=== PATIENT | female | born 1940 | race Caucasian/White ===

== ENCOUNTER → 2017-09-15 | Outpatient (CLI) | payer BC ==
[2014-05-01 11:00] VITALS: BP 140/70
[~2017-09-15] MED LIST: DIAZ5TAB4 PO; HYDR12.53 PO; NAPR500T4 PO; OMEP40CA5 PO; OXYB15TA PO; Oxybutynin Chloride PO; PROP20TA PO; Propranolol Hcl PO; ROPI1TAB PO; ROPI1TAB2 PO; SIMV40TA3 PO; SUCR1TAB35 PO; TRAM-48 PO; TRAM50TA PO; VENL75TA PO; Venlafaxine Hcl PO
--- NOTE | 2017-09-15 14:26 | RAD ---
DATE: 09/15/2017 EXAM: DIGITAL SCREEN BILAT W/CAD HISTORY: Routine screening COMPARISON: 08/27/2016 This study was interpreted with the benefit of Computerized Aided Detection (CAD). FINDINGS: Breast Density: HETERO The breast parenchyma Is heterogeneouslyy dense, which could reduce sensitivity of mammography. Breast parenchyma level C. There are no dominant suspicious masses, suspicious microcalcifications or evidence of architectural distortion. Nodules identified in the left breast appear similar to prior exam. IMPRESSION: Benign findings BI-RADS CATEGORY: 2 BENIGN FINDING RECOMMENDED FOLLOW-UP: 12M 12 MONTH FOLLOW-UP PQRS compliance statement: Patient information was entered into a reminder system with a target due date 09/15/2018 for the next mammogram. Mammography is a sensitive method for finding small breast cancers, but it does not detect them all and is not a substitute for careful clinical examination. A negative mammogram does not negate a clinically suspicious finding and should not result in delay in biopsying a clinically suspicious abnormality. "Our facility is accredited by the [employer] Mammography Program."
== END | disposition home or self-care (01) ==
LOC: MAMMO 13:33
PROVIDERS: ATTEND Family Medicine
DX: Z12.31 Encounter for screening mammogram for malignant neoplasm of breast (principal); Z87.891 Personal history of nicotine dependence
CPT/HCPCS: G0202; 77067

== ENCOUNTER → 2018-12-29 | Outpatient (CLI) | payer BC ==
[2014-05-01 11:00] VITALS: BP 140/70
[~2018-12-29] MED LIST changes: -HYDR12.53 PO; +HYDR12.575 PO; +NAPR-514 PO; -NAPR500T4 PO
--- NOTE | 2018-12-29 16:35 | RAD ---
Exam performed: X-ray lumbosacral spine HISTORY: Low back pain for one week, no recent injury. DATE OF SERVICE: 12/29/2018. COMPARISON: None available FINDINGS: AP, lateral, both oblique and cone view of the lumbosacral junction is obtained. There is grade 1 anterolisthesis of L4 over L5. The vertebral body heights are maintained. There is narrowing of L3/4, T12/L1 and L1/L2 intervertebral disc spaces. No compression fracture. Diffuse atheromatous calcification of the aorta is seen. Oblique views demonstrate multilevel bilateral apophyseal joint hypertrophic changes encroaching on the neural foramen bilaterally. IMPRESSION: Spondylotic changes and multilevel disc degenerative facet hypertrophic changes are noted. No acute abnormality seen. Electronically signed by: Maria Victoria Machcua MD (12/29/2018 4:30 PM) [place] [id number]
== END | disposition home or self-care (01) ==
LOC: RAD 15:17
PROVIDERS: ATTEND Family Medicine
DX: M47.816 Spondylosis without myelopathy or radiculopathy, lumbar region (principal); M48.061 Spinal stenosis, lumbar region without neurogenic claudication; M89.38 Hypertrophy of bone, other site; I70.0 Atherosclerosis of aorta; Z88.8 Allergy status to other drugs, medicaments and biological substances
CPT/HCPCS: 72110

== ENCOUNTER 2019-02-27 13:01 | Emergency (ER) | payer BC ==
[~2019-02-27] VITALS: Ht 162.6 cm; Wt 95.3 kg
[2019-02-27 13:23] VITALS: BP 140/69
[2019-02-27] MEDS ORDERED: DEXAMETHASONE 4 MG TABLET PO ONE (13:30)
--- NOTE | 2019-02-27 13:49 | RAD ---
Chest radiograph 02/27/2019 1:29 PM INDICATION: Cough for 10 days COMPARISON: October 05, 2018 TECHNIQUE: Frontal and lateral views of the chest are provided. FINDINGS: The cardiomediastinal silhouette is within normal limits. There are no pleural effusions. There is no pulmonary vascular congestion. There is no pneumothorax. The lungs are clear. Mild centrilobular pulmonary emphysema is present. Degenerative changes of the thoracic spine are noted. IMPRESSION: COPD changes without acute cardiopulmonary process. Electronically signed by: Hanna Kyle MD (02/27/2019 1:46 PM) [id number]
[2019-02-27] MEDS ORDERED: PRED20TA PO (14:05)
[2019-02-27] MEDS ORDERED: ALBU2.5V8 INH (14:05)
[2019-02-27] MEDS ORDERED: BENZ100C PO (14:05)
--- NOTE | 2019-02-27 14:05 | PHYS DOC ---
Past Medical History Past Medical History: GERD, High Cholesterol, Hypertension Past Surgical History: Hip Replacement, Knee Replacement Additional Past Surgical Histo: bladder sling (1 weeks ago) Alcohol Use: None Drug Use: None Adult General Chief Complaint Chief Complaint: COUGH HPI HPI Patient is a 78 year old [f__sex] who presents with [] Review of Systems Review of Systems Constitutional: Denies fever or chills [] Eyes: Denies change in visual acuity, redness, or eye pain [] HENT: Denies nasal congestion or sore throat [] Respiratory: Denies cough or shortness of breath [] Cardiovascular: No additional information not addressed in HPI [] GI: Denies abdominal pain, nausea, vomiting, bloody stools or diarrhea [] : Denies dysuria or hematuria [] Musculoskeletal: Denies back pain or joint pain [] Integument: Denies rash or skin lesions [] Neurologic: Denies headache, focal weakness or sensory changes [] Endocrine: Denies polyuria or polydipsia [] All other systems were reviewed and found to be within normal limits, except as documented in this note. Current Medications Current Medications Current Medications Medications (Trade) Dose Ordered Sig/Chris Start Time Stop Time Status Last Admin Dose Admin Dexamethasone (Decadron) 10 mg 1X ONCE 02/27/19 13:30 02/27/19 13:32 DC 02/27/19 13:30 10 MG Allergies Allergies Allergies Coded Allergies Type Severity Reaction Last Updated Verified diazepam Allergy Intermediate Anxiety 04/28/14 No adhesive Allergy Unknown 04/28/14 No Physical Exam Physical Exam Constitutional: Well developed, well nourished, no acute distress, non-toxic appearance. [] HENT: Normocephalic, atraumatic, bilateral external ears normal, oropharynx moist, no oral exudates, nose normal. [] Eyes: PERRLA, EOMI, conjunctiva normal, no discharge. [] Neck: Normal range of motion, no tenderness, supple, no stridor. [] Cardiovascular:Heart rate regular rhythm, no murmur [] Lungs & Thorax: Bilateral breath sounds clear to auscultation [] Abdomen: Bowel sounds normal, soft, no tenderness, no masses, no pulsatile masses. [] Skin: Warm, dry, no erythema, no rash. [] Back: No tenderness, no CVA tenderness. [] Extremities: No tenderness, no cyanosis, no clubbing, ROM intact, no edema. [] Neurologic: Alert and oriented X 3, normal motor function, normal sensory function, no focal deficits noted. [] Psychologic: Affect normal, judgement normal, mood normal. [] Current Patient Data Vital Signs Vital Signs Date Time Temp Pulse Resp B/P (MAP) Pulse Ox O2 Delivery O2 Flow Rate FiO2 02/27/19 13:23 98.7 77 16 140/69 (92) 96 Room Air 98.7 EKG EKG [] Radiology/Procedures Radiology/Procedures [] Course & Med Decision Making Course & Med Decision Making Pertinent Labs and Imaging studies reviewed. (See chart for details) [] Dragon Disclaimer Dragon Disclaimer This electronic medical record was generated, in whole or in part, using a voice recognition dictation system. Departure Departure Impression: Primary Impression: Bronchitis Disposition: 01 HOME, SELF-CARE Condition: STABLE Referrals: Marlin AGUSTIN MD (PCP) Patient Instructions: Acute Bronchitis, [id number] Additional Instructions: Continue recently prescribed antibiotics as directed Scripts Benzonatate (TESSALON PERLE) 100 Mg Capsule 1 CAP PO TID PRN for COUGH, #21 CAP Prov: JENNYFER SOTO DO 02/27/19 Albuterol Sulfate (PROAIR HFA INHALER) 8.5 Gm Hfa.aer.ad 1 PUFF INH PRN Q6HRS PRN for SHORTNESS OF BREATH, #1 INHALER 0 Refills Prov: JENNYFER SOTO DO 02/27/19 Prednisone (PREDNISONE) 20 Mg Tablet 2 TAB PO DAILY, #8 TAB Start this prescription tomorrow, Tue02/28/19 Prov: JENNYFER SOTO DO 02/27/19 JENNYFER SOTO DO Feb 27, 2019 14:05
== END 2019-02-27 14:31 | disposition home or self-care (01) ==
LOC: ER 13:01
DX: J40 Bronchitis, not specified as acute or chronic (principal); K21.9 Gastro-esophageal reflux disease without esophagitis; E78.00 Pure hypercholesterolemia, unspecified; I10 Essential (primary) hypertension; Z96.649 Presence of unspecified artificial hip joint; Z96.659 Presence of unspecified artificial knee joint; Z88.8 Allergy status to other drugs, medicaments and biological substances
CPT/HCPCS: 71046; 99283; J8540

== ENCOUNTER 2019-07-05 13:47 | Emergency (ER) | payer BC ==
[~2019-07-05] VITALS: Ht 162.6 cm; Wt 95.3 kg
[~2019-07-05 13:47] MED LIST changes: +ALBU2.5V8 INH; +BENZ100C PO; +PRED20TA PO
[2019-07-05 14:32] VITALS: BP 144/64
--- NOTE | 2019-07-05 14:58 | PHYS DOC ---
Past Medical History Past Medical History: GERD, High Cholesterol, Hypertension Past Surgical History: Hip Replacement, Knee Replacement Additional Past Surgical Histo: bladder sling (1 weeks ago)CARDIAC CATH Alcohol Use: None Drug Use: None Adult General Chief Complaint Chief Complaint: UPPER EXTREMITY PAIN HPI HPI Patient is a 78 year old female that presents to the ER with right arm pain. She states that she had a heart catheterization done 2 months ago and has been having pain upper arm ever since. The patient states they tried to do a radial catheter and then could not advance so they pulled out and with a different place. Since that time he is continued to have pain in the arm. States she has a knot in the right upper arm. Rates her pain as 10 out of 10 in severity. Review of Systems Review of Systems Constitutional: Denies fever or chills [] Eyes: Denies change in visual acuity, redness, or eye pain [] HENT: Denies nasal congestion or sore throat [] Respiratory: Denies cough or shortness of breath [] Cardiovascular: No additional information not addressed in HPI [] GI: Denies abdominal pain, nausea, vomiting, bloody stools or diarrhea [] : Denies dysuria or hematuria [] Musculoskeletal: R upper arm pain Integument: Denies rash or skin lesions [] Neurologic: Denies headache, focal weakness or sensory changes [] Endocrine: Denies polyuria or polydipsia [] Complete systems were reviewed and found to be within normal limits, except as documented in this note. Current Medications Current Medications Current Medications Medications (Trade) Dose Ordered Sig/Chris Start Time Stop Time Status Last Admin Dose Admin Acetaminophen/ Hydrocodone Bitart (Lortab 5/325) 1 tab 1X ONCE 07/05/19 15:00 07/05/19 15:09 DC 07/05/19 15:24 1 TAB Allergies Allergies Allergies Coded Allergies Type Severity Reaction Last Updated Verified diazepam Allergy Intermediate Anxiety 04/28/14 No adhesive Allergy Unknown 04/28/14 No Physical Exam Physical Exam Constitutional: Well developed, well nourished, no acute distress, non-toxic appearance. [] HENT: Normocephalic, atraumatic, bilateral external ears normal, oropharynx moist, no oral exudates, nose normal. [] Eyes: PERRLA, EOMI, conjunctiva normal, no discharge. [] Neck: Normal range of motion, no tenderness, supple, no stridor. [] Cardiovascular:Heart rate regular rhythm, no murmur [] Lungs & Thorax: Bilateral breath sounds clear to auscultation [] Abdomen: Bowel sounds normal, soft, no tenderness, no masses, no pulsatile masses. [] Skin: Warm, dry, no erythema, no rash. [] Back: No tenderness, no CVA tenderness. [] Extremities: Tenderness and knot to R upper arm. Neurologic: Alert and oriented X 3, normal motor function, normal sensory function, no focal deficits noted. [] Psychologic: Affect normal, judgement normal, mood normal. [] Current Patient Data Vital Signs Vital Signs Date Time Temp Pulse Resp B/P (MAP) Pulse Ox O2 Delivery O2 Flow Rate FiO2 07/05/19 14:32 97.8 82 20 144/64 (90) 94 Room Air 97.8 EKG EKG [] Radiology/Procedures Radiology/Procedures [address] [address] IMAGING REPORT Signed PATIENT: BG CHEN ACCOUNT: [id number] : 1940 LOCATION: ER AGE: 78 SEX: F EXAM STATUS: REG ER ORD. PHYSICIAN: JENNYFER REDDY APRN REASON: pain PROCEDURE: VENOUS UPPER EXTREMITY RIGHT Right upper extremity venous duplex study 07/05/2019 4:41 PM Clinical History: Right arm pain Technique: Using a combination of real time ultrasound imaging and color-flow and pulse Doppler imaging techniques, including spectral analysis, graded compression and augmentation, duplex evaluation of the deep venous system of the right upper extremity was performed. Multiple images were obtained. Findings: There is no sonographic evidence of deep venous thrombosis involving the visualized deep venous structures of the right upper extremity Impression: No evidence of deep venous thrombosis involving the right upper extremity Electronically signed by: Mert Contreras MD (07/05/2019 4:41 PM) [id number] DICTATED and SIGNED BY: MERT CONTRERAS MD DATE: 07/05/19 1641 [][address] [id number] IMAGING REPORT Signed PATIENT: BG CHEN ACCOUNT: [id number] : 1940 LOCATION: ER AGE: 78 SEX: F EXAM STATUS: REG ER ORD. PHYSICIAN: JENNYFER REDDY APRN REASON: cath x 2 months ago pain since that time. PROCEDURE: UPPER EXT ARTERIAL RIGHT Right upper extremity arterial duplex ultrasound 07/05/2019 INDICATION: Right upper extremity pain following prior arterial catheterization COMPARISON STUDY: None available Discussion: Ultrasound evaluation of the major arteries of the right upper extremity was performed including color Doppler imaging spectral analysis. Static images are submitted to PACS. The major arteries of the right upper extremity including the subclavian, axillary, brachial, radial, and ulnar arteries are grossly patent. Waveform morphology and velocities are within normal limits. No occlusion or aneurysm is seen. IMPRESSION: Unremarkable sonographic appearance of the major arteries of the right upper extremity. Electronically signed by: Mert Contreras MD (07/05/2019 4:48 PM) [facility] Course & Med Decision Making Course & Med Decision Making Pertinent Labs and Imaging studies reviewed. (See chart for details) Will get ultrasound of arm and give a [place]. Ultrasounds are negative. Will d/c home to follow up with primary care. Dragon Disclaimer Dragon Disclaimer This electronic medical record was generated, in whole or in part, using a voice recognition dictation system. Departure Departure Impression: Primary Impression: Right arm pain Disposition: HOME, SELF-CARE Condition: STABLE Referrals: Marlin MTZ MD (PCP) Additional Instructions: Thank you for visiting [facility]. We appreciate you trusting us with your care. If any additional problems come up don't hesitate to return to visit us. Please follow up with your primary care provider so they can plan ad ditional care if needed and know about the problem that you had. If symptoms worsen come back to the Emergency Department. Any concerning symptoms that start such as chest pain, shortness of air, weakness or numbness on one side of the body, running high fevers or any other concerning symptoms return to the ER. Please follow up with Dr. Mtz regarding this pain. JENNYFER REDDY APRN Jul 05, 2019 14:58
[2019-07-05] MEDS ORDERED: HYDROcodone/APAP 5/325MG 1 TAB TABLET PO ONE (15:00)
--- NOTE | 2019-07-05 16:44 | RAD ---
Right upper extremity venous duplex study 07/05/2019 4:41 PM Clinical History: Right arm pain Technique: Using a combination of real time ultrasound imaging and color-flow and pulse Doppler imaging techniques, including spectral analysis, graded compression and augmentation, duplex evaluation of the deep venous system of the right upper extremity was performed. Multiple images were obtained. Findings: There is no sonographic evidence of deep venous thrombosis involving the visualized deep venous structures of the right upper extremity Impression: No evidence of deep venous thrombosis involving the right upper extremity Electronically signed by: Mert Quevedo MD (07/05/2019 4:41 PM) [facility]
--- NOTE | 2019-07-05 16:51 | RAD ---
Right upper extremity arterial duplex ultrasound 07/05/2019 INDICATION: Right upper extremity pain following prior arterial catheterization COMPARISON STUDY: None available Discussion: Ultrasound evaluation of the major arteries of the right upper extremity was performed including color Doppler imaging spectral analysis. Static images are submitted to PACS. The major arteries of the right upper extremity including the subclavian, axillary, brachial, radial, and ulnar arteries are grossly patent. Waveform morphology and velocities are within normal limits. No occlusion or aneurysm is seen. IMPRESSION: Unremarkable sonographic appearance of the major arteries of the right upper extremity. Electronically signed by: Mert Quevedo MD (07/05/2019 4:48 PM) [facility]
== END 2019-07-05 17:10 | disposition home or self-care (01) ==
LOC: ER 13:47
DX: M79.601 Pain in right arm (principal); K21.9 Gastro-esophageal reflux disease without esophagitis; E78.00 Pure hypercholesterolemia, unspecified; I10 Essential (primary) hypertension; Z96.649 Presence of unspecified artificial hip joint; Z96.659 Presence of unspecified artificial knee joint; Z88.8 Allergy status to other drugs, medicaments and biological substances
CPT/HCPCS: 93931; 93971; 99284

== ENCOUNTER → 2019-07-27 | Outpatient (CLI) | payer BC ==
[2019-07-05 14:32] VITALS: BP 144/64
--- NOTE | 2019-07-27 16:21 | RAD ---
MR of the right proximal humerus HISTORY: Pain. TECHNIQUE: Routine multiplanar sequences are obtained through the proximal to mid humerus. FINDINGS: No acute fracture. No bone destruction. No periosteal reaction. No acute bone marrow edema. The visualized muscle tissue is intact. No abnormal soft tissue fluid collection or edema. Very limited visualization of the shoulder. Possible partial subscapularis tendon tear with medial subluxation of the biceps tendon. IMPRESSION: 1. Limited visualization of the shoulder demonstrates medial subluxation of the biceps tendon with a possible subscapularis tendon tear. Recommend dedicated MRI of the shoulder. 2. Otherwise no acute findings are seen in the proximal to mid humerus. Electronically signed by: Ramo Lucero MD (07/27/2019 4:18 PM) [facility]
== END | disposition home or self-care (01) ==
LOC: MRI 15:02
PROVIDERS: ATTEND Family Medicine
DX: R22.31 Localized swelling, mass and lump, right upper limb (principal)
CPT/HCPCS: 73218

== ENCOUNTER → 2019-08-24 | Outpatient (CLI) | payer BC ==
[~2019-08-24] MED LIST changes: +OMEP40CA45 PO; -OMEP40CA5 PO
--- NOTE | 2019-08-24 16:27 | RAD ---
Examination: MRI of the right shoulder without contrast HISTORY: History of impingement right shoulder COMPARISON: None available TECHNIQUE: Multiplanar, multisequence MR imaging of the right shoulder performed without contrast. Findings: Small amount of fluid identified within the bicipital tendon sheath with a low intensity focus within measuring 1.1 cm could be loose bodies within the biceps tendon sheath. The long of the biceps tendon appears to be within the bicipital groove however evaluation is limited due to positioning and due to patient body habitus. There is increased T2 signal identified in the subscapularis tendon likely tendinosis. Moderate increased signal identified in the supraspinatus, infraspinatus tendon likely tendinosis. Small amount of fluid identified in the subacromial /subdeltoid bursa. Moderate degenerative changes acromioclavicular joint with the acromion is downsloping. Intermediate T1 signal identified in the rotator interval. Moderate degenerative changes identified in the coracoclavicular joint, glenohumeral joint. Impression: 1. Small amount of fluid identified in the subacromial subdeltoid bursa likely bursitis. 2. Moderate tendinosis of the rotator cuff. 3. 1.1 cm low intensity focus identified within the biceps tendon sheath could be a loose body. Recommend CT for further evaluation. 4.. Obscuration of fat in the rotator interval. Correlate for adhesive capsulitis. 5. Moderate degenerative changes glenohumeral joint, acromioclavicular joints. Electronically signed by: Andrew Momin MD (08/24/2019 4:24 PM) [facility]
== END | disposition home or self-care (01) ==
LOC: MRI 14:30
PROVIDERS: ATTEND Orthopaedic Surgery
DX: M75.41 Impingement syndrome of right shoulder (principal)
CPT/HCPCS: 73221

== ENCOUNTER → 2019-12-05 | Outpatient (CLI) | payer BC ==
[~2019-12-05] MED LIST changes: -OXYB15TA PO; +OXYB15TA18 PO; +SIMV40TA18 PO; -SIMV40TA3 PO
--- NOTE | 2019-12-05 13:50 | RAD ---
EXAM: Lumbar spine, 5 views. HISTORY: Pain. COMPARISON: 12/29/2018 FINDINGS: 5 views of the lumbar spine are obtained. There is lumbar hyperlordosis. There is grade 1 anterolisthesis of L4 and L5 and L5-S1. There is minimal retrolisthesis of L3 on L4. There is degenerative endplate remodeling at all levels. There is anterior endplate osteophytosis at the lower thoracic levels. There is multilevel facet arthropathy, primarily at the lower lumbar levels. There is a right hip arthroplasty. IMPRESSION: 1. Multilevel degenerative change involving the thoracic and lumbar spine, described above. 2. Lumbar hyperlordosis and grade 1 anterolisthesis at L4-L5 and L5-S1. 3. No acute osseous finding. Electronically signed by: Viktoria Babb MD (12/05/2019 1:47 PM) [id number]
--- NOTE | 2019-12-05 15:51 | RAD ---
PROCEDURE: HAND LEFT 3V STUDY DATE: 12/05/2019 CLINICAL INDICATION / HISTORY: Joint pain. TECHNIQUE: PA, lateral and oblique views of the left hand. COMPARISON: None FINDINGS: Alignment shows mild medial subluxation of the proximal interphalangeal joint of the third digit. No dislocation. The bones are diffusely demineralized and although no fractures are seen and no marginal erosions are observed, intra-articular erosions are evident at the interphalangeal joints most conspicuously in the third, fourth and fifth digits. Osteophytic spurring is also present in these joints as well as in the first digit CMC joint and in the first digit IP joint. Joint space narrowing is present in all joints of the hands. The soft tissues show mild fusiform swelling in the fourth digit but no radiopaque foreign body or abnormal soft tissue gas is convincingly demonstrated. No significant arterial vascular calcifications are shown. 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 These likely occurred concurrent with uncomplicated degenerative osteoarthrosis of the left hand as well. No fracture or aggressive appearing osseous lesions. Electronically signed by: Matt Willett MD (12/05/2019 3:48 PM) [facility]
== END | disposition home or self-care (01) ==
LOC: RAD 12:52
PROVIDERS: ATTEND Family Medicine
DX: M43.17 Spondylolisthesis, lumbosacral region (principal); M47.816 Spondylosis without myelopathy or radiculopathy, lumbar region; M12.88 Other specific arthropathies, not elsewhere classified, other specified site; M25.542 Pain in joints of left hand
CPT/HCPCS: 72110; 73130

== ENCOUNTER → 2020-01-18 | Outpatient (CLI) | payer BC ==
[~2020-01-18] MED LIST changes: +CONTRAST GIVEN. MC PRN; +IOHEXOL 350 MG/ML 100 ML VIAL. IV ONE; -ROPI1TAB2 PO; +ROPI1TAB4 PO
--- NOTE | 2020-01-19 11:15 | RAD ---
CT angiography abdomen and pelvis with lower extremity runoff with contrast PQRS statement: CT scans at this facility use dose reduction including either automated exposure control, iterative reconstructions, and /or weight based radiation dosing via mA and kV modification when appropriate to reduce radiation dose to as low as reasonably achievable. TECHNIQUE: CT imaging abdomen, pelvis and legs to the feet with 3-D MIP and volume reconstructions of the arteries with 95 mL Omnipaque 350 intravenous contrast HISTORY: Peripheral vascular disease. Leg swelling. Right leg pain with ambulation. Abdomen findings: Lung bases unremarkable. Lower lumbar disc disease and arthritic change. Plaquing of the aorta without aneurysm, dissection, significant stenosis or occlusion. Plaquing without stenosis or occlusion of the abdominal arteries or aneurysm. Liver, gallbladder, pancreas, adrenal glands, spleen and kidneys are unremarkable. No bowel obstruction or inflammatory change. Pelvis findings: Minimal plaquing iliac arteries, no aneurysm, dissection, stenosis or occlusion. Hysterectomy. Bladder, rectum unremarkable. Right hip with classic streak artifact. Left leg findings: No plaquing, aneurysm, dissection, stenosis or occlusion of the common femoral artery, profunda femoral artery, superficial femoral artery or visualized popliteal artery. A portion of the popliteal arteries obscured by streak artifact from the arthroplasty. Trifurcation patent. Tibioperoneal trunk patent. Posterior tibial artery patent to the foot. Peroneal artery patent to the lower calf. Anterior tibial artery patent to the lower dorsalis pedis at the foot. Os navicular at the foot and arthritic change of the midfoot. Right leg: No plaque, aneurysm, dissection, stenosis or occlusion of the common femoral artery, profunda femoral artery, superficial femoral artery or visualized popliteal artery, there is a portion of the popliteal artery obscured by streak artifact from the arthroplasty. Trifurcation patent. Tibial peroneal trunk patent. Posterior tibial artery patent to the foot. Peroneal artery patent to the lower calf. Anterior tibial artery patent to the dorsalis pedis at the ankle although there is limited contrast density at the foot which may be due to timing of imaging with contrast bolus although the asymmetry relative to the contralateral foot could indicate some intrinsic disease of the vessel. Os navicular and arthritic change of the midfoot. IMPRESSION: 1. Asymmetric limited contrast density at the right dorsalis pedis artery at the ankle and foot without a discrete thrombus or focal stenosis. This could indicate intrinsic small vessel disease at the foot. 2. Plaquing without significant stenosis, aneurysm or dissection of the aorta and iliac arteries. No femoral or popliteal artery disease. Electronically signed by: Terell Saleh MD (01/19/2020 11:12 AM) [id number]
== END | disposition home or self-care (01) ==
LOC: CT 13:42
PROVIDERS: ATTEND Family Medicine
DX: M19.071 Primary osteoarthritis, right ankle and foot (principal); I73.9 Peripheral vascular disease, unspecified
CPT/HCPCS: 75635; Q9967

== ENCOUNTER → 2020-06-19 | Outpatient (CLI) | payer BC ==
[~2020-06-19] MED LIST changes: -CONTRAST GIVEN. MC PRN; -IOHEXOL 350 MG/ML 100 ML VIAL. IV ONE
--- NOTE | 2020-06-19 15:51 | KCIC ---
LUMBAR SPINE WO CONTRAST Date: 06/19/2020 1:15 PM Indication: Reason: LUMBAR BACK PAIN WITH RADICULOPATHY / Spl. Instructions: / History: Acute LBP about one month ago. BLE radiculopathy, NKI. Comparison: CT runoff 01/18/2020. Technique: Multi-planar multi-weighted magnetic resonance imaging of the lumbar spine was performed without intravenous contrast using the standard lumbar spine protocol. FINDINGS: 3 mm anterolisthesis at L4-5. No acute fracture. Mild to moderate multilevel degenerative disc desiccation and disc height loss. Bone marrow signal intensity is normal. The conus terminates at a normal level. No abnormal signal is seen within the visualized distal spinal cord. No clumping of intrathecal nerve roots. No soft tissue abnormality in the visualized abdomen or pelvis. T12-L1: No disc bulge. No facet arthropathy. No significant spinal stenosis or neural foraminal narrowing. L1-L2: Disc bulge. Mild facet arthropathy. No significant spinal stenosis or neural foraminal narrowing. L2-L3: Disc bulge. Moderate facet arthropathy. No significant spinal stenosis. Mild bilateral neural foraminal narrowing. L3-L4: Disc bulge. Severe right and moderate left facet arthropathy. Ligamentum flavum thickening. Mild spinal canal stenosis. Moderate right and mild left lateral recess narrowing. Moderate to severe right and mild left neural foraminal narrowing. L4-L5: Disc bulge. Severe facet arthropathy. Ligamentum flavum thickening. Moderate to severe spinal stenosis and lateral recess narrowing. Mild bilateral neural foraminal narrowing. L5-S1: Disc bulge. Severe facet arthropathy. No significant spinal stenosis or neural foraminal narrowing. IMPRESSION: Moderate to severe spinal canal stenosis at L4-5. Degenerative changes at the remaining levels as detailed above. Electronically signed by: Demond Tenorio MD (06/19/2020 3:49 PM) [id number]
== END | disposition home or self-care (01) ==
LOC: KCIC MRI 12:59
PROVIDERS: ATTEND Family Medicine
DX: M47.27 Other spondylosis with radiculopathy, lumbosacral region (principal); M51.16 Intervertebral disc disorders with radiculopathy, lumbar region; M48.061 Spinal stenosis, lumbar region without neurogenic claudication
CPT/HCPCS: 72148

== ENCOUNTER → 2020-07-10 | Outpatient (CLI) | payer BC ==
[~2020-07-10] MED LIST changes: +CALC1TAB PO; +DULO60CA6 PO; +FAMO20TA5 PO; +HYDR-2761 PO; +IOHEXOL 180 MG/ML 10 ML VIAL. ONE; +methylPREDNISolone ACETATE 40 MG/ML VIAL. ONE; +methylPREDNISolone ACETATE 80 MG/ML VIAL. ONE
--- NOTE | 2020-07-10 12:51 | PDOC2 ---
INITIAL PAIN CONSULT DATE OF SERVICE: DOS: DATE: 07/10/20 TIME: 12:42 CHIEF COMPLAINT: Chief Complaint: Low back and left lower extremity pain HISTORY OF PRESENT ILLNESS: 9-year-old female presents with history of pain low back bilateral lower extremities left. The right for many years worse over the past 1 year increasing with activity standing walking changing positions better with sitting or laying down patient reports the pain is in the low back rating the posterior gluteus bilaterally somewhat more on the left than the right in the lower extremity anterior thigh lateral thigh medial thigh medial lower leg with a "catches" in the left knee. Patient reports the pain is constant sharp stabbing throbbing primarily in the evening or at night is waking her from sleep about once or twice at night otherwise feels better with sitting or laying down worse with standing and walking patient reports does not affect her bowel bladder control it does affect ability to walk she is using a cane which he uses with her left hand and she has a walker at home which she uses occasionally. Patient tried physical therapy as well as exercise and doing some stretching exercises with her back currently but no formal physical therapy recently. Patient is taking hydrocodone which does help acetaminophen also [id number] analgesics which have been helpful but only temporarily. Patient did have an MRI scan lumbar spine showing L3-4 disc bulge with severe right and moderate left facet arthropathy mild spinal canal stenosis moderate right and mild left neural lateral recess narrowing L4-5 shows disc bulge with severe facet arthropathy moderate to severe spinal stenosis and lateral recess narrowing with mild bilateral neuroforaminal narrowing. Reports no loss of motor function is significant fatigability of both lower extremities specially on the left side with walking. Patient rates her disability rating from 0-10 10 being the worst is a 10 with family home responsibilities and is 0 in all other categories. PAST MEDICAL HISTORY: PMH: Shortness of breath, cigarette smoking quit 40 years ago, hypertension, dizziness, gastroesophageal reflux, hyperlipidemia, Mnire's disease, fibromyalgia, depression, essential tremor PREVIOUS SURGERIES: Past Surgical Hx: Bladder sling, hysterectomy, bilateral total knee replacement bilateral total hip replacement, left elbow surgery x4 CURRENT MEDICATIONS: Current Meds: Active Scripts Medications Dose Route/Sig Max Daily Dose Days Date Category Caltrate 600 + D Tablet (Calcium Carbonate/Vitamin D3) 1 Each Tablet 1 Each PO DAILY 07/10/20 Reported Famotidine 20 Mg Tablet 20 Mg PO BID 07/10/20 Reported Cymbalta (Duloxetine Hcl) 60 Mg Capsule.dr 1 Cap PO DAILY 07/10/20 Reported Hydrocodone-Apap 5-325 (Hydrocodone Bit/Acetaminophen) 1 Tab Tablet 1 Tab PO PRN Q6HRS PRN 07/10/20 Reported Proair Hfa Inhaler (Albuterol Sulfate) 8.5 Gm Hfa.aer.ad 1 Puff INH PRN Q6HRS PRN 02/27/19 Rx [Venlafaxine Hcl] 75 MG Tablet 75 Mg PO BID 05/01/14 Rx Ultram (Tramadol Hcl) 50 Mg Tablet 50 Mg PO PRN Q4HRS PRN 05/01/14 Rx Carafate (Sucralfate) 1 Gm Tablet 1 Gm PO BIDAC 05/01/14 Rx Requip (Ropinirole Hcl) 1 Mg Tablet 1 Mg PO DAILY 05/01/14 Rx [Propranolol Hcl] 10 MG Tablet 20 Mg PO DAILY 05/01/14 Rx [Oxybutynin Chloride] 5 MG Tab.er.24h 15 Mg PO DAILY 05/01/14 Rx Simvastatin 40 Mg Tablet 40 Mg PO HS 04/28/14 Reported Ropinirole Hcl 1 Mg Tablet 1 Mg PO DAILY 04/28/14 Reported ALLERGIES; Allergies: Coded Allergies: diazepam (Unverified Allergy, Intermediate, Anxiety, 04/28/14) patient states "made her crazy" adhesive (Unverified Allergy, Unknown, 04/28/14) FAMILY HISTORY: Family Hx: No known family history SOCIAL HISTORY: Social Hx: Patient does not drink alcohol does not smoke not use any illegal illicit or recreational drugs is lives with her spouse has for 65 years lives locally in [facility] 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 REVIEW OF SYSTEMS: ROS: Review of systems is positive for those items mentioned in history of present illness all systems are reviewed otherwise negative complete full and well- documented on patient's chart. PHYSICAL EXAM: VS: Pressure 142/85 pulse 74 respiration 16 temperature 98.2 F height is 5 feet 4 inches weight is 220 pounds PE: PHYSICAL EXAMINATION: GENERAL: The patient is awake, alert, oriented, appropriate, very pleasant demeanor HEENT: Shows normocephalic, atraumatic. Extraocular movements are intact and symmetrical. Oral cavity: Mucous membranes moist and pink. NECK: Shows anterior throat supple without palpable lymphadenopathy noted. Swallow reflex symmetrical. CHEST: Shows normal on inspection. Breath sounds are clear bilaterally. HEART: Shows S1, S2 clear. No murmurs auscultated. ABDOMEN: Soft, nontender, nondistended, obese. No palpable organomegaly is noted. No rebound or guarding demonstrated. BACK: Shows spine grossly in the midline. Normal-appearing cervical lordotic curvature. There is slightly increased thoracic kyphosis, some minor flattening of the lumbar lordotic curvature. Lumbar paraspinous muscles show symmetrical on inspection, on palpation shows some moderate tenderness diffusely throughout the upper, middle and lower distribution of the paraspinous muscles bilaterally and also into the lower thoracic paraspinous musculature, right greater than left, firm and tender, but without specific trigger points, without radiation of pain. The patient has good rotational motion of the lumbar spine, both laterally as well as extension and flexion without significant difficulty. No tenderness over the spinous processes, sacrum or sacroiliac regions. EXTREMITIES: Lower extremities show deep tendon reflexes 1+ in the patellar and tendo calcaneus tendons. Motor exam is 4 on a scale of 5 with right dorsiflexion, extension, quadriceps and hamstring flexion and 4/5 on the left. Peripheral pulses are 1+ posterior tibial. No peripheral edema is noted bilaterally. Lower extremities are warm and dry to touch, equal in color and appearance. Straight leg raise noted to be positive on the left about 35 degrees, right side is negative. Gaenslen's and Jose's maneuvers are negative as well. The patient is able to bend, stand on her toes but loses b alance quickly walks with a favoring gait favoring the left lower extremity using a cane in her left hand. SKIN: Shows warm and dry, good turgor. No edema. No sores, rashes or bruising throughout. IMPRESSION: Impression: 79-year-old female with long history of low back and left lower extremity pain worse over the past year or so without specific injury or accident. MRI scan lumbar spine as noted Arthritis Hypertension Dizziness Shortness of breath Plan: Options were discussed with the patient including conservative medical management physical therapy and interventional techniques. Patient would like to pursue invasive techniques, we discussed a lumbar epidural steroid injection using description as well as anatomical model to describe the procedure. Risk rhythm discussed including but not limited to bleeding infection possibility of epidural hematoma subsequent neurological compromise dural puncture headache spinal cord and or nerve damage side effects of steroid medication and poor results guarding pain control. Patient understands wished to proceed. Patient return to clinic in approximately 2 weeks for follow-up was counseled as to activity level and side effects to be aware of. Procedure is lumbar epidural steroid injection under local anesthetic using sterile prep and drape at the L4-5 level using C-arm fluoroscopic guidance in both AP and lateral views medications injected is 120 mg Depo-Medrol + 10 mL preservative-free normal saline and 2 mL contrast- condition at discharge is stable patient tolerated procedure well had no complications. BARRINGTON GERBER MD Jul 10, 2020 12:51
== END | disposition home or self-care (01) ==
LOC: PNCL 11:37
PROVIDERS: ATTEND Anesthesiology
DX: M54.5 Low back pain (principal); I10 Essential (primary) hypertension; M19.90 Unspecified osteoarthritis, unspecified site; M79.662 Pain in left lower leg; K21.9 Gastro-esophageal reflux disease without esophagitis; E78.5 Hyperlipidemia, unspecified; F32.9 Major depressive disorder, single episode, unspecified; Z87.891 Personal history of nicotine dependence; Z88.8 Allergy status to other drugs, medicaments and biological substances; Z79.899 Other long term (current) drug therapy
CPT/HCPCS: 62323; J1030; J1040; Q9965

== ENCOUNTER → 2020-08-06 | Outpatient (CLI) | payer BC ==
[~2020-08-06] MED LIST changes: +GABA-585 PO
--- NOTE | 2020-08-06 12:43 | PDOC ---
Progress Note - Pain Clinic Date of Service: DOS: DATE: 08/06/20 TIME: 12:39 Diagnosis: Dx: Lumbar radiculopathy lumbar degenerative disc disease and lumbar spinal stenosis History or Present Illness: HPI: 80-year-old female returns follow-up status post lumbar epidural steroid injection x1. Patient reports about 50% improvement with much decreased pain in her low back but her left leg is still significantly painful with walking standing. Patient reports no new motor or sensory deficits no new bowel or bladder incontinence but with persistent pain in the left lower extremity worse with walking standing changing positions. Better with sitting or laying down but wakes her from sleep occasionally. Patient reports her pain is a 10 on scale 10 is worse over the past week 10 on average 9 at its least is a 10 today. Describes pain as aching and sharp constant stabbing unbearable at times with activity and walking. She reports initially she was doing much better with distance walking doing household activities especially standing for greater periods of time but now the pain is returning. Physical Exam: VS: Blood pressure is 125/72 pulse 54 respiration 16 temperature 97.9 F weight is 220 pounds PE: PHYSICAL EXAMINATION: GENERAL: The patient is awake, alert, oriented, appropriate, very pleasant demeanor HEENT: Shows normocephalic, atraumatic. Extraocular movements are intact and symmetrical. Oral cavity: Mucous membranes moist and pink. NECK: Shows anterior throat supple without palpable lymphadenopathy noted. Swallow reflex symmetrical. CHEST: Shows normal on inspection. Breath sounds are clear bilaterally, no rales rhonchi or wheezes auscultated. HEART: Shows S1, S2 clear. No murmurs auscultated. ABDOMEN: Soft, nontender, nondistended, obese. No palpable organomegaly is noted. No rebound or guarding demonstrated. BACK: Shows spine grossly in the midline. Normal-appearing cervical lordotic curvature. There is slightly increased thoracic kyphosis, some minor flattening of the lumbar lordotic curvature. Lumbar paraspinous muscles show symmetrical on inspection, on palpation shows some moderate tenderness diffusely throughout the upper, middle and lower distribution of the paraspinous muscles bilaterally without specific trigger points, without radiation of pain. The patient has good rotational motion of the lumbar spine, both laterally as well as extension and flexion without significant difficulty. No tenderness over the spinous processes, sacrum or sacroiliac regions. EXTREMITIES: Lower extremities show deep tendon reflexes 1+ in the patellar and tendo calcaneus tendons. Motor exam is 4 on a scale of 5 with right dorsiflexion, extension, quadriceps and hamstring flexion and 4/5 on the left. Peripheral pulses are 1+ posterior tibial. No peripheral edema is noted bilaterally. Lower extremities are warm and dry to touch, equal in color and appearance. SKIN: Shows warm and dry, good turgor. No edema. No sores, rashes or bruising throughout. Procedure: Procedure: Options were discussed with the patient. Patient will chart reviews her current medication regimen updated current review of systems updated today as well. We will proceed with a second in the series lumbar epidural steroid injection today with fluoroscopic guidance. Risks were discussed including but not limited to: Bleeding, infection, possibility of epidural hematoma and subsequent neurological compromise, dural puncture, headaches, spinal cord and/or nerve damage, side effects of steroid medication, and poor results regarding pain control. Patient understands wished to proceed. Patient return to clinic in approximately 2 weeks for follow-up. Patient was counseled as to return appointment activity level and side effects to be aware. Medication Injected: Med Injected: Procedure is lumbar epidural steroid injection under local anesthetic using sterile prep and drape at the L4-5 level using C-arm fluoroscopic guidance in both AP and lateral views medications injected is 120 mg Depo-Medrol + 10 mL preservative-free normal saline and 2 mL contrast- condition at discharge is stable patient tolerated procedure well had no complications. Condition at Discharge: Condition at Discharge: Condition at discharge is stable patient tolerated the procedure well had no complications. BARRINGTON GERBER MD Aug 06, 2020 12:43
== END | disposition home or self-care (01) ==
LOC: PNCL 11:18
PROVIDERS: ATTEND Anesthesiology
DX: M51.16 Intervertebral disc disorders with radiculopathy, lumbar region (principal); M48.061 Spinal stenosis, lumbar region without neurogenic claudication; I10 Essential (primary) hypertension; E78.5 Hyperlipidemia, unspecified; F32.9 Major depressive disorder, single episode, unspecified; Z88.8 Allergy status to other drugs, medicaments and biological substances; Z79.899 Other long term (current) drug therapy; Z87.891 Personal history of nicotine dependence
CPT/HCPCS: 62323; J1030; J1040; Q9965

== ENCOUNTER → 2020-08-20 | Outpatient (CLI) | payer BC ==
[~2020-08-20] MED LIST changes: +ASPI-630 PO; +GABA300C18 PO
--- NOTE | 2020-08-20 11:52 | PDOC ---
Progress Note - Pain Clinic Date of Service: DOS: DATE: 08/20/20 TIME: 11:49 Diagnosis: Dx: Lumbar radiculopathy with lumbar degenerative disease and lumbar spinal stenosis History or Present Illness: HPI: 80-year-old female returns for follow-up status post lumbar epidural steroid injections x2. Patient reports about 50% improvement but the pain is returning after about 1 to 2 weeks patient reports pain in the low back bilateral lower extremities worse on the left in the posterior gluteus lateral thigh lateral anterior thigh medial thigh with some burning sensation in both of the knees especially on the left side patient reports is worse with walking standing changing positions and her legs "feel weak" patient reports her pain is a 10 on scale 10 at all times worst least an average in the 10 today patient scribes pain is sharp and shooting radiating the left lower extremity is noted. Patient reports no new motor or sensory deficits no new bowel or bladder incontinence or other complaints. Physical Exam: VS: Blood pressure is 109/42 pulse 53 respirations 16 temperature 98.2 F weight is 226 pounds PE: PHYSICAL EXAMINATION: GENERAL: The patient is awake, alert, oriented, appropriate, very pleasant demeanor HEENT: Shows normocephalic, atraumatic. Extraocular movements are intact and symmetrical. NECK: Shows anterior throat supple without palpable lymphadenopathy noted. Swallow reflex symmetrical. CHEST: Shows normal on inspection. Breath sounds are clear bilaterally, no rales rhonchi or wheezes. HEART: Shows S1, S2 clear. No murmurs auscultated. ABDOMEN: Soft, nontender, nondistended. No palpable organomegaly is noted. No rebound or guarding demonstrated. BACK: Shows spine grossly in the midline. Normal-appearing cervical lordotic curvature. There is slightly increased thoracic kyphosis, some minor flattening of the lumbar lordotic curvature. Lumbar paraspinous muscles show symmetrical on inspection, on palpation shows some moderate tenderness diffusely throughout the upper, middle and lower distribution of the paraspinous muscles bilaterally without specific trigger points, without radiation of pain. The patient has good rotational motion of the lumbar spine, both laterally as well as extension and flexion without significant difficulty. No tenderness over the spinous processes, sacrum or sacroiliac regions. EXTREMITIES: Lower extremities show deep tendon reflexes 1+ in the patellar and tendo calcaneus tendons. Motor exam is 4 on a scale of 5 with right dorsifle xion, extension, quadriceps and hamstring flexion and 4/5 on the left. Peripheral pulses are 1+ posterior tibial. No peripheral edema is noted bilaterally. Lower extremities are warm and dry to touch, equal in color and appearance. SKIN: Shows warm and dry, good turgor. No edema. No sores, rashes or bruising throughout. Procedure: Procedure: Options were discussed with the patient. Patient's old chart reviews her current medication regimen updated current review of systems updated today as well. We will proceed with a third in the series lumbar epidural steroid injection today with fluoroscopic guidance. Risks were discussed including but not limited to: Bleeding, infection, possibility of epidural hematoma and subseq uent neurological compromise, dural puncture, headaches, spinal cord and/or nerve damage, side effects of steroid medication, and poor results regarding pain control. Patient understands wished to proceed. Patient return to clinic in approximate 2 weeks for follow-up was counseled as to return appointment activity level and side effects to be aware of. Medication Injected: Med Injected: Procedure is lumbar epidural steroid injection under local anesthetic using sterile prep and drape at the L4-5 level using C-arm fluoroscopic guidance in both AP and lateral views medications injected is 120 mg Depo-Medrol + 10 mL preservative-free normal saline and 2 mL contrast- condition at discharge is stable patient tolerated procedure well had no complications. Condition at Discharge: Condition at Discharge: Condition at discharge is stable patient tolerated the procedure well had no complications. BARRINGTON GERBER MD Aug 20, 2020 11:52
== END | disposition home or self-care (01) ==
LOC: PNCL 10:57
PROVIDERS: ATTEND Anesthesiology
DX: M51.16 Intervertebral disc disorders with radiculopathy, lumbar region (principal); M48.061 Spinal stenosis, lumbar region without neurogenic claudication; I10 Essential (primary) hypertension; K21.9 Gastro-esophageal reflux disease without esophagitis; F41.9 Anxiety disorder, unspecified; F32.9 Major depressive disorder, single episode, unspecified; E78.5 Hyperlipidemia, unspecified; Z88.8 Allergy status to other drugs, medicaments and biological substances; Z79.82 Long term (current) use of aspirin; Z79.899 Other long term (current) drug therapy; Z87.891 Personal history of nicotine dependence
CPT/HCPCS: 62323; J1030; J1040; Q9965

== ENCOUNTER → 2020-11-17 | Outpatient (CLI) | payer BC ==
[~2020-11-17] MED LIST changes: -IOHEXOL 180 MG/ML 10 ML VIAL. ONE; -methylPREDNISolone ACETATE 40 MG/ML VIAL. ONE; -methylPREDNISolone ACETATE 80 MG/ML VIAL. ONE
--- NOTE | 2020-11-17 17:28 | KCIC ---
EXAM: Pelvis and left hip, 2 views. HISTORY: Pain. COMPARISON: None. FINDINGS: A frontal view the pelvis and frog-leg view of the left hip are obtained. There is a right hip arthroplasty in expected position. There is degenerative change at the lower lumbar levels. There is no acute fracture, dislocation or subluxation. IMPRESSION: No acute osseous finding. Electronically signed by: Viktoria Babb MD (11/17/2020 5:26 PM) [id number]
--- NOTE | 2020-11-17 17:32 | KCIC ---
EXAM: Left knee, 3 views. HISTORY: Pain. COMPARISON: None. FINDINGS: 3 views of the left knee are obtained. There is a left knee arthroplasty in expected positi on. There is no evidence of arthroplasty loosening. There is no periprosthetic fracture. There is tra ce joint fluid. IMPRESSION: Left knee arthroplasty in expected position. Electronically signed by: Viktoria Babb MD (11/17/2020 5:30 PM) [id number]
== END ==
LOC: KCIC 15:08
PROVIDERS: ATTEND Family Medicine
DX: M47.816 Spondylosis without myelopathy or radiculopathy, lumbar region (principal); G89.29 Other chronic pain; Z96.652 Presence of left artificial knee joint
CPT/HCPCS: 73501; 73562

== ENCOUNTER 2020-11-26 15:23 | Emergency (ER) | payer BC, OTHER ==
[~2020-11-26] VITALS: Ht 162.6 cm; Wt 97.3 kg
[~2020-11-26 15:23] MED LIST changes: -OMEP40CA45 PO; +OMEP40CA7 PO
[2020-11-26] MEDS ORDERED: MORPHINE SULFATE 2 MG/ML VIAL. IM ONE (15:45)
[2020-11-26 15:46] VITALS: BP 131/91
--- NOTE | 2020-11-26 15:53 | PHYS DOC ---
Past Medical History Past Medical History: GERD, High Cholesterol, Hypertension (DYLAN MCKEON APRN) Past Surgical History: Hip Replacement, Knee Replacement Additional Past Surgical Histo: bladder sling (1 weeks ago)CARDIAC CATH (DYLAN MCKEON APRN) Smoking Status: Former Smoker Alcohol Use: None Drug Use: None (DYLAN MCKEON APRN) General Adult EDM: Chief Complaint: KNEE SWELLING HPI: HPI: Patient is a 80 year old female with history of hypertension, high cholesterol, acid reflux, bilateral knee replacements, who presents the ED today complaining of moderate pain to the left knee radiating to the left thigh symptoms of been going on for 3-4 weeks. Patient states she has been seen by the PCP who did x- rays of the left knee and they were negative, she states she was sent home with pain medicine, she states the pain medicine is not relieving her pain. She is very tearful. She states she would like an answer why her knee is hurting. Denies any trauma. (DYLAN MCKEON APRN) Review of Systems: Review of Systems: Constitutional: Denies fever or chills. [] GI: Denies abdominal pain, nausea, vomiting, bloody stools or diarrhea. [] : Denies dysuria. [] Musculoskeletal: Reports left knee pain Integument: Denies rash. [] Neurologic: Denies headache, focal weakness or sensory changes. [] Psychiatric: Denies depression or anxiety. [] (DYLAN MCKEON APRN) Heart Score: Risk Factors: Risk Factors: DM, Current or recent (<one month) smoker, HTN, HLP, family history of CAD, obesity. Risk Scores: Score 0 - 3: 2.5% MACE over next 6 weeks - Discharge Home Score 4 - 6: 20.3% MACE over next 6 weeks - Admit for Clinical Observation Score 7 - 10: 72.7% MACE over next 6 weeks - Early Invasive Strategies (DYLAN MCKEON APRN) Current Medications: Current Medications Medications (Trade) Dose Ordered Sig/Chris Start Time Stop Time Status Last Admin Dose Admin Morphine Sulfate (Morphine Sulfate) 2 mg 1X ONCE 11/26/20 15:45 11/26/20 15:46 UNV (DYLAN MCKEON APRN) Allergies: Allergies: Allergies Coded Allergies Type Severity Reaction Last Updated Verified diazepam Allergy Intermediate Anxiety 04/28/14 No adhesive Allergy Unknown 04/28/14 No (DYLAN MCKEON APRN) Physical Exam: PE: Constitutional: Well developed, well nourished, no acute distress, non-toxic appearance. [] Skin: Warm, dry, no erythema, no rash. [] Back: No tenderness, no CVA tenderness. [] Extremities: Bilateral knees with old healed surgical incisions consistent with knee replacements. Mild soft tissue swelling noted on the left knee with no redness no warmth. Limited range of motion to the left knee due to pain. +2 bilateral pedal pulses. Cap refill less than 2 seconds to bilateral lower extremities. Neurologic: Alert and oriented X 3, normal motor function, normal sensory function, no focal deficits noted. [] Psychologic: Flat affect, tearful (DYLAN MCKEON APRN) EKG: EKG: [] (DYLAN MCKEON APRN) Radiology/Procedures: Radiology/Procedures: []PROCEDURE: KNEE LEFT 3V Indications: Pain AP view of the pelvis and two-view study of the left hip: No acute fracture or dislocation or lytic process is evident. There is mild joint space narrowing of the left hip joint consistent with mild primary degenerative osteoarthritis. No significant spurring of the left hip joint is seen. A total right hip arthroplasty is evident which is well aligned. IMPRESSION: No acute fracture. 3 view study of the left knee: Total left knee arthroplasty is evident which is well aligned. No acute fracture or lytic process is seen. No significant left knee joint effusion is seen radiographically. IMPRESSION: No acute fracture. Electronically signed by: Jamie Mcqueen MD (11/26/2020 4:36 PM) [id number] DICTATED and SIGNED BY: JAMIE MCQUEEN MD DATE: 11/26/20 [id number] (DYLAN MCKEON APRN) Course & Med Decision Making: Course & Med Decision Making Pertinent Labs and Imaging studies reviewed. (See chart for details) This is a 80-year-old female patient presenting to the ED today with complaints of left knee pain for 3 to 4 weeks, no known injury. Was already seen by the PCP and had a negative x-ray. Returns today requesting another x-ray to be given answers why she still has knee pain. Left hip x-rays including pelvis and left knee x-rays are negative for any acute findings. Provided patient discharge information with follow-up with the orthopedic doctor. She has pain medicine at home. Ice elevation encouraged. Provided return precautions. She was able to ambulate in the room with standby assist. I had originally offered admission to the hospital if she feels she is unable to ambulate at home. She declined. (DYLAN MCKEON APRN) Dragon Disclaimer: Dragon Disclaimer: This electronic medical record was generated, in whole or in part, using a voice recognition dictation system. (DYLAN MCKEON APRN) Departure Departure Impression: Primary Impression: Left knee pain Qualified Codes: M25.562 - Pain in left knee Disposition: 01 DC HOME SELF CARE/HOMELESS Condition: STABLE Referrals: Marlin AGUSTIN MD (PCP) Follow-up in 1 to 2 weeks MIGUELANGEL BAKER MD follow up in 1-2 weeks Patient Instructions: Knee Pain, [id number] Additional Instructions: You were evaluated in the emergency room for left knee pain radiating to her left thigh. Your left knee x-rays are negative for any acute findings, your left hip x-rays including pelvis are negative for any acute findings. Please follow-up with the provided orthopedic doctor in 1 to 2 weeks. You can also follow-up with your primary care doctor Attending Signature Attending Signature I have reviewed the PA/GRIDCAP MACHINE OPERATOR's note and plan of care. I was available for consultation as needed during the patient's visit in the emergency department. I agree with the clinical impression, plan, and disposition. (JENNYFER SOTO DO) DYLAN MCKEON APRN Nov 26, 2020 15:53 JENNYFER SOTO DO Nov 27, 2020 10:17
--- NOTE | 2020-11-26 16:38 | RAD ---
Indications: Pain AP view of the pelvis and two-view study of the left hip: No acute fracture or dislocation or lytic p rocess is evident. There is mild joint space narrowing of the left hip joint consistent with mild neelima rima degenerative osteoarthritis. No significant spurring of the left hip joint is seen. 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 IMPRESSION: No acute fracture. 3 view study of the left knee: Total left knee arthroplasty is evident which is well aligned. No acut e fracture or lytic process is seen. No significant left knee joint effusion is seen radiographically . IMPRESSION: No acute fracture. Electronically signed by: Rg Mcqueen MD (11/26/2020 4:36 PM) [id number]
== END 2020-11-26 17:00 | disposition home or self-care (01) ==
LOC: ER 15:23
DX: M25.562 Pain in left knee (principal); M79.652 Pain in left thigh; K21.9 Gastro-esophageal reflux disease without esophagitis; E78.00 Pure hypercholesterolemia, unspecified; I10 Essential (primary) hypertension; Z87.891 Personal history of nicotine dependence; Z96.653 Presence of artificial knee joint, bilateral; Z96.642 Presence of left artificial hip joint; Z88.8 Allergy status to other drugs, medicaments and biological substances
CPT/HCPCS: 73502; 73562; 96372; 99283; J2270; 31500; 36556; 51702; 92950; 99284; 99292; 99291-25

== ENCOUNTER → 2021-05-08 | Outpatient (CLI) | payer OTHER ==
--- NOTE | 2021-05-08 10:39 | RAD ---
US LEFT LOWER EXTREMITY ARTERIAL DUPLEX EVAL Indication: Reason: LT LEG PAIN / Spl. Instructions: / History: Comparison: None. Procedure: Real-time grayscale, color flow Doppler, and Doppler spectral waveform analysis of the art erial system of the lower extremity is performed. Findings: Left lower extremity: Triphasic or biphasic waveforms are present in the common femoral artery, super ficial femoral artery, popliteal artery, anterior tibial artery, posterior tibial artery and dorsalis pedis artery. No significant velocity elevation. IMPRESSION: 1. No hemodynamically significant arterial stenosis. Electronically signed by: Zhen Graves DO (05/08/2021 10:37 AM) [id number]
== END ==
LOC: US 10:52
PROVIDERS: ATTEND Family Medicine
DX: M79.605 Pain in left leg (principal)
CPT/HCPCS: 93926